=== PATIENT | female | born 2000 | race Hispanic/Latino ===

== ENCOUNTER 2022-01-04 14:01 | Emergency (ER) | payer OTHER ==
[~2022-01-04] VITALS: Ht 154.9 cm; Wt 63.7 kg
[2022-01-04 14:02] VITALS: BP 123/68
[2022-01-04] MEDS ORDERED: IBUP80TA PO (19:34)
[2022-01-04] MEDS ORDERED: IBUPROFEN 800 MG TAB PO ONE (19:35)
== END 2022-01-04 19:52 | disposition home or self-care (01) ==
LOC: M ED 14:01
DX: S16.1XXA Strain of muscle, fascia and tendon at neck level, initial encounter (principal); R07.89 Other chest pain; W01.198A Fall on same level from slipping, tripping and stumbling with subsequent striking against other object, initial encounter; Y92.099 Unspecified place in other non-institutional residence as the place of occurrence of the external cause; Y93.9 Activity, unspecified; Y99.9 Unspecified external cause status

== ENCOUNTER → 2022-11-12 | Outpatient (CLI) | payer OTHER ==
[~2022-11-12] MED LIST: IBUP80TA PO; ISOVUE-370 76% 100ML VIAL As Ordered ONE
== END ==
LOC: M RADPRO 11:17
PROVIDERS: ATTEND Obstetrics & Gynecology
DX: N97.9 Female infertility, unspecified (principal)
CPT/HCPCS: 58340; 74740; Q9967

== ENCOUNTER → 2023-02-11 | Outpatient (CLI) | payer OTHER ==
[~2023-02-11] MED LIST changes: -ISOVUE-370 76% 100ML VIAL As Ordered ONE
== END ==
LOC: M RAD 14:41
PROVIDERS: ATTEND Advanced Practice Midwife
DX: Z36.89 Encounter for other specified antenatal screening (principal); Z3A.08 8 weeks gestation of pregnancy

== ENCOUNTER 2023-02-20 17:23 | Emergency (ER) | payer OTHER ==
[~2023-02-20] VITALS: Ht 154.9 cm; Wt 57.9 kg
[2023-02-20 17:24] VITALS: TEMP 98.1
[2023-02-20 18:05] LABS: BASO % 0.4 % (0.0-1.0); EOS # 0.1 10^3/uL (0.0-0.5); HEMATOCRIT 36.7 % (36.0-47.0); HEMOGLOBIN 12.8 g/dl (12.0-15.5); LYMPH # 2.2 10^3/uL (1.5-5.0); LYMPH % 19.3 % (24.0-44.0); MEAN CORPUSCULAR HEMOGLOBIN 32.7 pg (27.0-33.0); MEAN CORPUSCULAR HGB CONC 34.9 g/dl (32.0-36.5); MEAN CORPUSCULAR VOLUME 93.6 fl (80.0-96.0); MONO # 0.6 10^3/uL (0.0-0.8); MONO % 5.2 % (2.0-8.0); NEUTROPHILS # 8.4 10^3/uL (1.5-8.5); NEUTROPHILS % 73.7 % (36.0-66.0); PLATELET COUNT, AUTOMATED 323 10^3/uL (150-450); RED BLOOD COUNT 3.92 10^6/uL (4.00-5.40); WHITE BLOOD COUNT 11.4 10^3/uL (4.0-10.0)
[2023-02-20] MEDS ORDERED: COMPCHW PO (18:10)
[2023-02-20] MEDS ORDERED: ONDANSETRON 4MG 2ML VIAL IV ONE (18:45)
[2023-02-20] MEDS ORDERED: NS 1,000 ML IV ONE (18:45)
[2023-02-20 19:04] LABS: LIPASE 25 U/L (12-53)
[2023-02-20 19:06] LABS: ALBUMIN 3.6 G/DL (3.2-5.2); ALKALINE PHOSPHATASE 80 U/L (46-116); ALT/SGPT 36 U/L (7.0-40); AST/SGOT < 8 U/L (<34); BILIRUBIN,DIRECT 0.1 MG/DL (<0.4); BILIRUBIN,TOTAL 0.4 MG/DL (0.3-1.2); TOTAL PROTEIN 6.9 G/DL (5.7-8.2)
[2023-02-20 19:33] LABS: HCG, SERUM QUANTITATIVE 198869.6 MIU/ML (<4.2)
[2023-02-20 20:21] LABS: BLOOD UREA NITROGEN 7 MG/DL (9-23); CALCIUM LEVEL 8.6 MG/DL (8.5-10.1); CARBON DIOXIDE LEVEL 24 MMOL/L (20-31); CHLORIDE LEVEL 107 MMOL/L (98-107); CREATININE FOR GFR 0.43 MG/DL (0.55-1.30); GLOMERULAR FILTRATION RATE > 60.0 (>60); GLUCOSE, FASTING 95 MG/DL (60-100); POTASSIUM SERUM 4.1 MMOL/L (3.5-5.1); SODIUM LEVEL 140 MMOL/L (136-145)
[2023-02-20] MEDS ORDERED: ONDA4TAB6 PO (21:19)
[2023-02-20 21:29] VITALS: BP 132/84; O2SAT 99
== END 2023-02-20 21:30 | disposition home or self-care (01) ==
LOC: M ED 17:23
DX: O21.9 Vomiting of pregnancy, unspecified (principal); Z3A.10 10 weeks gestation of pregnancy
CPT/HCPCS: 80048; 80076; 81001; 83690; 84702; 85025; 86850; 86900; 86901; 87086; 96361; 96374; 99284; J2405

== ENCOUNTER 2023-08-25 00:43 | Inpatient (IN) | payer OTHER ==
[~2023-08-25] VITALS: Ht 154.9 cm; Wt 79.7 kg
[2023-08-25] VITALS (40 sets, daily range): BP systolic 102–150; BP diastolic 57–90; O2SAT 98
[~2023-08-25 00:43] MED LIST changes: +COMPCHW PO; +ONDA4TAB6 PO
[2023-08-25] MEDS ORDERED: PENICILLIN G POTASSIUM 5 MU IV 5 MU in D5W MINI-BAG PLUS 100 ML IV STA (02:17)
[2023-08-25] MEDS ORDERED: LACTATED RINGER'S 1000 ML IV STA (02:17)
[2023-08-25] MEDS ORDERED: OXYTOCIN INJ 10UNITS/ML 1ML VIAL IV PRN (02:20)
[2023-08-25] MEDS ORDERED: OXYTOCIN DRIP 30 UNITS in IV 1 EA IV SCH ×2 (02:20→08:35)
[2023-08-25] MEDS ORDERED: LIDOCAINE 1% MDV 20ML VIAL INFIL PRN (02:20)
[2023-08-25] MEDS ORDERED: CARBOPROST TROMETHAMINE 250 MCG/ML AMP IM PRN (02:20)
[2023-08-25] MEDS ORDERED: OXYTOCIN INJ 10UNITS/ML 1ML VIAL IM PRN (02:20)
[2023-08-25] MEDS ORDERED: METHYLERGONOVINE MALEATE 0.2MG/ML 1ML VIAL IM PRN ×2 (02:20→08:35)
[2023-08-25] MEDS ORDERED: OXYTOCIN DRIP 30 UNITS in IV 1 EA IV PRN ×6 (02:20)
[2023-08-25] MEDS ORDERED: TRANEXAMIC ACID INJection 1,000 MG in NS 100 ML IV PRN (02:20)
[2023-08-25] MEDS ORDERED: LR 1,000 ML IV SCH ×3 (02:20→08:35)
[2023-08-25] MEDS ORDERED: BETAMETHASONE SOLUSPAN 6MG/ML 5ML VIAL IM SCH (02:30)
[2023-08-25 02:40] LABS: HEMOGLOBIN 13.2 g/dl (12.0-15.5); MEAN CORPUSCULAR HEMOGLOBIN 33.2 pg (27.0-33.0); MEAN CORPUSCULAR HGB CONC 34.7 g/dl (32.0-36.5); MEAN CORPUSCULAR VOLUME 95.7 fl (80.0-96.0); PLATELET COUNT, AUTOMATED 229 10^3/uL (150-450); RED BLOOD COUNT 3.97 10^6/uL (4.00-5.40); WHITE BLOOD COUNT 16.4 10^3/uL (4.0-10.0)
[2023-08-25] MEDS ORDERED: FENTANYL/ROPIVACAINE/NACL BAG 100 ML EPIDURAL SCH (03:45)
[2023-08-25] MEDS ORDERED: NALOXONE INJ 0.4MG/1ML VIAL IV PRN (03:45)
[2023-08-25] MEDS ORDERED: LR 500 ML IV PRN (03:45)
[2023-08-25] MEDS ORDERED: ONDANSETRON 4MG 2ML VIAL IV PRN ×2 (03:45→08:35)
[2023-08-25] MEDS ORDERED: EPIDURAL/PCA KEYS XX PRN (03:45)
[2023-08-25] MEDS ORDERED: ePHEDrine SULFATE 25 MG/5 ML(5MG/ML) SYRINGE IVP PRN (03:45)
[2023-08-25] MEDS ORDERED: diphenhydrAMINE 50MG/ML VIAL IV PRN (03:45)
[2023-08-25] MEDS ORDERED: REFLB XX ONE (03:48)
[2023-08-25] MEDS ORDERED: PEN G POT 3,000,000 UNIT/50 ML 3,000,000 UNIT in IV 1 EA IV SCH (08:15)
[2023-08-25] MEDS ORDERED: ACETAMINOPHEN TAB 650MG DOSE (2X325MG) PO PRN (08:35)
[2023-08-25] MEDS ORDERED: DIBUCAINE 1% OINTMENT 30GM TOP PRN (08:35)
[2023-08-25] MEDS ORDERED: DOCUSATE SODIUM 100MG CAPSULE PO PRN (08:35)
[2023-08-25] MEDS ORDERED: IBUPROFEN 600MG TAB PO PRN (08:35)
[2023-08-25] MEDS ORDERED: METOCLOPRAMIDE INJ 10MG/2ML VIAL IV PRN (08:35)
[2023-08-25] MEDS ORDERED: RHOGAM 300MCG (1500IU) INJ IM SCH (08:35)
[2023-08-25 08:39] LABS: CORD GAS ABE V -12.1; CORD GAS HCO3 V 18.4 MMOL/L; CORD GAS O2 SAT V 24.8 %; CORD GAS PCO2 V 60.9 mmHg; CORD GAS PH V 7.098 UNITS; CORD GAS PO2 V 17.4 mmHg; CORD GAS SBC V 13.7 MMOL/L; CORD GAS TCO2 V 20.3 MMOL/L
[2023-08-25 08:41] LABS: CORD GAS HCO3 A 21.2 MMOL/L; CORD GAS O2 SAT A 36.7 %; CORD GAS PCO2 A 69.8 mmHg; CORD GAS PH A 7.1 UNITS; CORD GAS PO2 A 22.2 mmHg; CORD GAS SBC A 15.4 MMOL/L; CORD GAS TCO2 A 23.3 MMOL/L
[2023-08-25] MEDS: PRENATAL VITAMINS CHEWABLE TABLET PO SCH (09:00)
[2023-08-25] MEDS ORDERED: PRENATAL VITAMINS CHEWABLE TABLET PO SCH (09:00)
[2023-08-25] MEDS: IBUPROFEN 800 MG TAB PO PRN ×3 (10:59→20:38)
[2023-08-26] MEDS: ACETAMINOPHEN 500 MG TAB PO PRN (02:20)
[2023-08-26 06:00] VITALS: BP 118/72; O2SAT 98
[2023-08-26 06:46] LABS: HEMATOCRIT 35.2 % (36.0-47.0); HEMOGLOBIN 11.9 g/dl (12.0-15.5); MEAN CORPUSCULAR HEMOGLOBIN 33.3 pg (27.0-33.0); MEAN CORPUSCULAR HGB CONC 33.8 g/dl (32.0-36.5); MEAN CORPUSCULAR VOLUME 98.6 fl (80.0-96.0); PLATELET COUNT, AUTOMATED 215 10^3/uL (150-450); RED BLOOD COUNT 3.57 10^6/uL (4.00-5.40)
[2023-08-26] MEDS: PRENATAL VITAMINS CHEWABLE TABLET PO SCH (08:47)
[2023-08-26 18:00] VITALS: BP 113/69; O2SAT 97
[2023-08-26] MEDS: IBUPROFEN 800 MG TAB PO PRN (20:32)
[2023-08-27 06:00] VITALS: BP 122/77; O2SAT 98
[2023-08-27] MEDS ORDERED: COLA100C5 PO (08:36)
[2023-08-27] MEDS ORDERED: IBUP-1022 PO (08:36)
[2023-08-27] MEDS ORDERED: ACET1TAB55 PO (08:36)
[2023-08-27] MEDS: PRENATAL VITAMINS CHEWABLE TABLET PO SCH (08:56)
[2023-08-27] MEDS: IBUPROFEN 800 MG TAB PO PRN (08:56)
[2023-08-27] MEDS ORDERED: MEASLES,MUMPS,RUBELLA VACCINE INJ (MMR-II) SC.IMMUN ONE (09:00)
[2023-08-27] MEDS: ACETAMINOPHEN 500 MG TAB PO PRN (09:42)
== END 2023-08-27 10:00 | disposition home or self-care (01) | DRG 807 ==
LOC: M LDO 00:43 → M LDI 01:25 → M OBS 11:06
PROVIDERS: ADMIT Obstetrics & Gynecology; ATTEND Obstetrics & Gynecology
PROC: 10E0XZZ Delivery of Products of Conception, External Approach (ICD-10-PCS; principal; 2023-08-25)
DX: O60.14X0 Preterm labor third trimester with preterm delivery third trimester, not applicable or unspecified (principal); Z37.0 Single live birth; Z3A.36 36 weeks gestation of pregnancy

== ENCOUNTER 2023-09-28 16:17 | Emergency (ER) | payer OTHER ==
[~2023-09-28] VITALS: Ht 154.9 cm; Wt 73.5 kg
[~2023-09-28 16:17] MED LIST changes: +ACET1TAB55 PO; +COLA100C5 PO; +IBUP-1022 PO
[2023-09-28 18:09] VITALS: BP 114/77; TEMP 97.1; O2SAT 96
== END 2023-09-28 18:24 | disposition home or self-care (01) ==
LOC: M ED 16:17
DX: U07.1 COVID-19 (principal); F41.9 Anxiety disorder, unspecified; F32.A Depression, unspecified; F10.10 Alcohol abuse, uncomplicated; Z79.810 Long term (current) use of selective estrogen receptor modulators (SERMs)

== ENCOUNTER 2024-02-12 09:34 | Emergency (ER) | payer OTHER ==
[~2024-02-12] VITALS: Ht 154.9 cm; Wt 69.4 kg
[~2024-02-12 09:34] MED LIST changes: +ONDA-282 PO; -ONDA4TAB6 PO
[2024-02-12] MEDS: KETOROLAC 60MG 2ML VIAL IM ONE (11:39)
[2024-02-12] MEDS: LIDOCAINE 1% MDV 20ML VIAL SC ONE (12:10)
[2024-02-12 14:29] VITALS: BP 101/68; TEMP 98.3; O2SAT 99
== END 2024-02-12 14:30 | disposition home or self-care (01) ==
LOC: M ED 09:34
DX: N75.1 Abscess of Bartholin's gland (principal)
CPT/HCPCS: 56420; 96372; 99283; J1885

== ENCOUNTER 2024-02-15 02:51 | Emergency (ER) | payer OTHER ==
[~2024-02-15] VITALS: Ht 154.9 cm; Wt 70.8 kg
[2024-02-15 07:06] VITALS: BP 128/77; TEMP 97.1; O2SAT 99
[2024-02-15] MEDS ORDERED: AMOX875T2 PO (07:20)
== END 2024-02-15 07:33 | disposition home or self-care (01) ==
LOC: M ED 02:51
DX: O26.891 Other specified pregnancy related conditions, first trimester (principal); N75.1 Abscess of Bartholin's gland; Z3A.08 8 weeks gestation of pregnancy; Z79.2 Long term (current) use of antibiotics; Z79.899 Other long term (current) drug therapy

== ENCOUNTER → 2024-04-04 | Outpatient (REF) | payer OTHER ==
[~2024-04-04] MED LIST changes: +AMOX875T2 PO
[2024-04-29 11:57] LABS: HPV APTIMA Not Detected (Not Detected)
== END ==
LOC: M SFHCWAGY 14:59
PROVIDERS: ATTEND Nurse Practitioner Women's Health
DX: Z12.4 Encounter for screening for malignant neoplasm of cervix (principal); R87.610 Atypical squamous cells of undetermined significance on cytologic smear of cervix (ASC-US)
CPT/HCPCS: 87624; G0123

== ENCOUNTER 2024-05-19 18:30 | Emergency (ER) | payer OTHER ==
[~2024-05-19] VITALS: Ht 154.9 cm; Wt 65.6 kg
[2024-05-19 20:17] LABS: URINE PREG TEST NEGATIVE (NEGATIVE)
[2024-05-19] MEDS ORDERED: KETO10TAB PO (20:41)
[2024-05-19 20:47] VITALS: BP 122/77; TEMP 98.2; O2SAT 99
== END 2024-05-19 20:58 | disposition home or self-care (01) ==
LOC: M ED 18:30
DX: N83.291 Other ovarian cyst, right side (principal); Z79.2 Long term (current) use of antibiotics; Z79.899 Other long term (current) drug therapy

== ENCOUNTER 2024-06-19 09:36 | Emergency (ER) | payer OTHER ==
[~2024-06-19] VITALS: Ht 154.9 cm; Wt 63.1 kg
[~2024-06-19 09:36] MED LIST changes: +KETO10TAB PO
[2024-06-19] MEDS: ONDANSETRON 4MG 2ML VIAL IV ONE (12:18)
[2024-06-19 12:34] LABS: BASO # 0.1 10^3/uL (0.0-0.2); BASO % 0.5 % (0.0-1.0); EOS # 0.3 10^3/uL (0.0-0.5); HEMATOCRIT 41.5 % (36.0-47.0); HEMOGLOBIN 14.4 g/dl (12.0-15.5); LYMPH # 1.6 10^3/uL (1.5-5.0); LYMPH % 16.9 % (24.0-44.0); MEAN CORPUSCULAR HEMOGLOBIN 33.3 pg (27.0-33.0); MEAN CORPUSCULAR HGB CONC 34.7 g/dl (32.0-36.5); MEAN CORPUSCULAR VOLUME 95.8 fl (80.0-96.0); MONO # 0.5 10^3/uL (0.0-0.8); MONO % 5.4 % (2.0-8.0); NEUTROPHILS # 7.1 10^3/uL (1.5-8.5); PLATELET COUNT, AUTOMATED 333 10^3/uL (150-450); RED BLOOD COUNT 4.33 10^6/uL (4.00-5.40); WHITE BLOOD COUNT 9.6 10^3/uL (4.0-10.0)
[2024-06-19 12:53] LABS: APPEARANCE, URINE HAZY (CLEAR); BACTERIA, URINE AUTO 1+ (NEGATIVE); BILIRUBIN, URINE AUTO NEGATIVE (NEGATIVE); BLOOD, URINE BLOOD NEGATIVE (NEGATIVE); COLOR, URINE AMBER (YELLOW); GLUCOSE, URINE (UA) AUTO NEGATIVE (NEGATIVE); KETONE, URINE AUTO 2+ mg/dL (NEGATIVE); LEUKOCYTE ESTERASE, URINE AUTO NEGATIVE (NEGATIVE); MUCUS, URINE LARGE (NEGATIVE); NITRITE, URINE AUTO NEGATIVE (NEGATIVE); PROTEIN, URINE AUTO 2+ mg/dL (NEGATIVE); RBC, URINE AUTO 1 /HPF (0-3); SPECIFIC GRAVITY URINE AUTO 1.034 (1.002-1.035); SQUAMOUS EPITHELIAL CELL UR AU 2 /HPF (0-6); WBC, URINE AUTO 2 /HPF (0-3)
[2024-06-19 12:56] LABS: LIPASE 33 U/L (12-53)
[2024-06-19 12:58] LABS: ALBUMIN 4.5 G/DL (3.2-5.2); ALKALINE PHOSPHATASE 92 U/L (35-104); ALT/SGPT 20 U/L (7.0-40); AST/SGOT 15 U/L (<34); BILIRUBIN,DIRECT 0.3 MG/DL (<0.4); BILIRUBIN,TOTAL 0.6 MG/DL (0.3-1.2); BLOOD UREA NITROGEN 7 MG/DL (9-23); CALCIUM LEVEL 9.8 MG/DL (8.5-10.1); CARBON DIOXIDE LEVEL 24 MMOL/L (20-31); CHLORIDE LEVEL 106 MMOL/L (98-107); CREATININE FOR GFR 0.45 MG/DL (0.55-1.30); GLOMERULAR FILTRATION RATE > 60.0 (>60); GLUCOSE, FASTING 92 MG/DL (60-100); POTASSIUM SERUM 4.3 MMOL/L (3.5-5.1); SODIUM LEVEL 137 MMOL/L (136-145); TOTAL PROTEIN 8.4 G/DL (5.7-8.2)
[2024-06-19] MEDS ORDERED: ONDA-282 PO (14:41)
[2024-06-19 14:56] VITALS: BP 130/73; TEMP 97.6; O2SAT 100
== END 2024-06-19 15:31 | disposition home or self-care (01) ==
LOC: M ED 09:36
DX: O21.9 Vomiting of pregnancy, unspecified (principal); E28.2 Polycystic ovarian syndrome; Z87.891 Personal history of nicotine dependence; Z3A.01 Less than 8 weeks gestation of pregnancy; Z79.83 Long term (current) use of bisphosphonates; Z79.899 Other long term (current) drug therapy
CPT/HCPCS: 76801; 80048; 80076; 81001; 83690; 84702; 85025; 87086; 93976; 96374; 99284; J2405

== ENCOUNTER → 2025-01-04 | Outpatient (REF) | payer OTHER | LOC: M SFHCWAGY 12:33 | PROVIDERS: ATTEND Obstetrics & Gynecology | DX: O09.293 Supervision of pregnancy with other poor reproductive or obstetric history, third trimester (principal); Z3A.34 34 weeks gestation of pregnancy ==